=== PATIENT | male | born 1970 | race Caucasian/White ===

== ENCOUNTER 2017-10-06 16:32 | Emergency (ER) | payer OTHER ==
[~2017-10-06] VITALS: Ht 182.9 cm; Wt 79.4 kg
--- NOTE | 2017-10-06 16:46 | PHYS DOC ---
Past History Past Medical History: Migraines Past Surgical History: Appendectomy Smoking: Non-smoker Alcohol Use: None Drug Use: None Adult General Chief Complaint Chief Complaint: CHEST PAIN [facility] HPI Patient is a 47-year-old male who presents to the emergency department for evaluation. He states that yesterday, he became conscious of chest discomfort in his right anterior chest wall, which this morning he noticed had involved his left side of his chest as well. He states the pain was particularly present when he bent down and rolled his shoulders forward type issues, but he has not noticed any other exacerbating factors to his chest discomfort. Movement does not seem to worsen his pain, exertion or physical activity does not seem to worsen his chest discomfort. He denies any shortness of breath or pleuritic pain , nausea, vomiting, or diaphoresis. The pain is described as an ache, and does not radiate. He has a family history of coronary artery disease, but not necessarily prematurely, and based on his age and family history, his heart score would be a 2, assuming a negative troponin. Review of Systems Review of Systems Constitutional: Denies fever or chills [] Eyes: Denies change in visual acuity, redness, or eye pain [] HENT: Denies nasal congestion or sore throat [] Respiratory: Denies cough or shortness of breath [] Cardiovascular: No additional information not addressed in HPI [] GI: Denies abdominal pain, nausea, vomiting, bloody stools or diarrhea [] : Denies dysuria or hematuria [] Musculoskeletal: Denies back pain or joint pain [] Integument: Denies rash or skin lesions [] Neurologic: Denies headache, focal weakness or sensory changes [] Endocrine: Denies polyuria or polydipsia [] All other systems were reviewed and found to be within normal limits, except as documented in this note. Physical Exam Physical Exam PHYSICAL EXAM: CONSTITUTIONAL: Well developed, well nourished HEAD: normocephalic, atraumatic EENT: PERRL, EOMI. Conjunctivae normal color, sclerae non-icteric; moist mucous membranes. NECK: Supple, non-tender; no meningismus. LUNGS: Lungs CTA, breathing even and unlabored. Normal air movement. HEART: Regular rate and rhythm, no murmur CHEST: No deformity; non-tender ABDOMEN: The abdomen is soft, and non-tender, no masses or bruits. EXTREM: Normal ROM; no deformity, no calf tenderness. Normal pulses palpable in all extremities. There is no pedal edema. SKIN: No rash; no diaphoresis NEURO: Alert; normal speech and cognition; CN's grossly intact; strength grossly intact without focal deficit. BACK: No CVA TTP. EKG EKG [Normal sinus rhythm with a normal rate, normal axis, normal intervals, there are no acute ischemic ST/T changes.] Radiology/Procedures Radiology/Procedures [ER physician preliminary chest x-ray interpretation: No acute disease.] Course & Med Decision Making Course & Med Decision Making Pertinent Labs and Imaging studies reviewed. (See chart for details) [6:00 PM: The patient's condition remained stable. He risk stratifies low on the cardiac risk stratification, his symptoms are atypical. Repeat EKG will be performed, and if negative, the patient be released. I discussed use of NSAIDs for presumed musculoskeletal pain, the need for close PCP follow-up for further evaluation, and return precautions for new or recurrent chest pain. Dragon Disclaimer Dragon Disclaimer This electronic medical record was generated, in whole or in part, using a voice recognition dictation system. Departure Departure: Impression: Primary Impression: Atypical chest pain Disposition: HOME, SELF-CARE Condition: STABLE Referrals: SHAHBAZ SOLANO DO (PCP) Patient Instructions: Chest Pain (Nonspecific), Musculoskeletal Pain ROXANNE WILLIS MD Oct 06, 2017 16:46
--- NOTE | 2017-10-06 17:03 | RAD ---
Chest, 2 views, 10/06/2017: HISTORY: Chest pain The heart size and pulmonary vascularity are normal. No pulmonary infiltrate is seen. There is no evidence of pleural fluid. Minimal spurring is present in the spine. IMPRESSION: No acute cardiopulmonary abnormality is detected. Electronically signed by: Massimo Newman MD (10/06/2017 4:59 PM) [facility]
[2017-10-06 17:04] LABS: BASO % 1 % (0-3); EOS # 0.1 x10^3/uL (0.0-0.7); EOS % 1 % (0-3); HEMATOCRIT 45.5 % (39.0-53.0); HEMOGLOBIN 15.6 g/dL (13.0-17.5); LYMPH # 2.8 x10^3/uL (1.0-4.8); LYMPH % 36 % (24-48); MEAN CORPUSCULAR HEMOGLOBIN 31 pg (25-35); MEAN CORPUSCULAR HGB CONC 34 g/dL (31-37); MEAN CORPUSCULAR VOLUME 90 fL (79-100); MONO # 0.8 x10^3/uL (0.0-1.1); MONO % 10 % (0-9); NEUT # 4.2 x10^3uL (1.8-7.7); NEUT % 53 % (31-73); PLATELET COUNT 236 x10^3/uL (140-400); RED BLOOD COUNT 5.08 x10^6/uL (4.30-5.70); RED CELL DISTRIBUTION WIDTH 12.5 % (11.5-14.5); WHITE BLOOD COUNT 7.9 x10^3/uL (4.0-11.0)
[2017-10-06] MEDS ORDERED: ASPIRIN 81 MG TAB.CHEW PO ONE (17:20)
[2017-10-06 17:29] LABS: ALBUMIN 3.6 g/dL (3.4-5.0); CREATININE 1.1 mg/dL (0.7-1.3); GFR 71.1; MAGNESIUM 2.2 mg/dL (1.8-2.4); POTASSIUM 3.8 mmol/L (3.5-5.1); TOTAL BILIRUBIN 0.3 mg/dL (0.2-1.0); TOTAL PROTEIN 7.2 g/dL (6.4-8.2)
[2017-10-06 17:54] VITALS: BP 119/63
--- NOTE | 2017-10-07 07:43 | EKG ---
[address] [address] Test Date: 2017-10-06 Test Time: 18:07:15 Pat Name: SERA AGUIRRE Department: Room: Gender: M Tool Smith: : 1970 Requested By: ROXANNE WILLIS Order Number: [id number] Reading MD: Measurements Intervals [place] Rate: 75 P: 36 NM: 162 QRS: 41 QRSD: 84 T: 40 QT: 398 QTc: 447 Interpretive Statements SINUS RHYTHM INTERPOLATED ATRIAL PREMATURE COMPLEX(ES) QRS(T) CONTOUR ABNORMALITY CONSIDER ANTEROSEPTAL MYOCARDIAL DAMAGE POSSIBLY ABNORMAL ECG RI6.01 Unconfirmed report No previous ECG available for comparison
== END 2017-10-06 18:11 | disposition home or self-care (01) ==
LOC: ER 16:32
DX: R07.89 Other chest pain (principal); G43.909 Migraine, unspecified, not intractable, without status migrainosus
CPT/HCPCS: 36415; 71046; 80053; 82553; 83690; 83735; 83880; 84484; 85025; 85379; 93005; 99285-25